=== PATIENT | female | born 1955 | race Caucasian/White ===

== ENCOUNTER → 2018-02-07 | Outpatient (CLI) | payer BC | END | disposition home or self-care (01) | LOC: RAH 13:45 | DX: Z12.31 Encounter for screening mammogram for malignant neoplasm of breast (principal) | CPT/HCPCS: 77067 ==

== ENCOUNTER 2018-03-05 10:06 | Emergency (ER) | payer BC ==
[2018-03-05 11:10] LABS: CREATININE 0.9 mg/dL (0.5-1.5); POTASSIUM 3.4 mmol/L (3.5-5.1)
[2018-03-05 11:16] LABS: BILIRUBIN,URINE Negative (NEGATIVE); COLOR,URINE Yellow (YELLOW); GLUCOSE, URINE (UA) Negative (NEGATIVE); KETONES,URINE Negative (NEGATIVE); LEUKOCYTE ESTERASE ,URINE Negative (NEGATIVE); NITRATE,URINE Negative (NEGATIVE); OCCULT BLOOD,URINE Negative (NEGATIVE); PH,URINE 6.5 (5.0-8.0); PROTEIN,URINE Negative (NEGATIVE); UROBILINOGEN,URINE 0.2 mg/dL (0.2-1.0)
[2018-03-05 11:17] LABS: BASOPHILS % (AUTO) 0.8 % (0.0-5.0); EOSINOPHILS % (AUTO) 1.4 % (0.0-8.0); HEMATOCRIT 37.9 % (36-48); LYMPHOCYTES % (AUTO) 27.4 % (21.0-51.0); MEAN CORPUSCULAR HEMOGLOBIN 31.1 pg (27.0-33.0); MEAN CORPUSCULAR VOLUME 88.8 fL (79-99); MONOCYTES % (AUTO) 7.7 % (3.0-13.0); NEUTROPHILS % (AUTO) 62.7 % (40.0-77.0); NUCLEATED RED BLOOD CELLS 0.1 % (0.0-0.19); PLATELET COUNT (AUTO) 277 K/uL (130-400); RED BLOOD CELL COUNT(AUTO) 4.27 MIL/uL (4.00-5.50); RED CELL DISTRIBUTION WIDTH 12.6 % (11.0-15.5); WHITE BLOOD COUNT (AUTO) 5.9 K/uL (4.8-10.8)
[2018-03-05 11:22] LABS: INR 0.96 (0.85-1.15); PROTHROMBIN TIME 10.1 SEC (9.6-11.6)
[2018-03-05 11:23] LABS: ALBUMIN 3.8 g/dL (3.5-5.0); BILIRUBIN,TOTAL 0.3 mg/dL (0.2-1.0); CREATINE KINASE MB 0.9 ng/mL (0.5-3.6); TOTAL PROTEIN, SERUM 7.3 g/dL (6.0-8.3)
[2018-03-05 11:24] LABS: BACTERIA,URINE Rare /HPF (None Seen); RBC,URINE None Seen /HPF (0-1); SQUAMOUS EPITHELIAL CELL,UR Rare /HPF (0-2); WBC,URINE None Seen /HPF (0-1)
[2018-03-05 11:27] LABS: APPEARANCE,URINE CLEAR (CLEAR)
[2018-03-05] MEDS ORDERED: CYCLOBENZAPRINE HCL 10 MG TABLET ONE (11:29)
[2018-03-05] MEDS ORDERED: TRAMADOL HCL 50 MG TABLET ONE (11:29)
[2018-03-05] MEDS ORDERED: METHYLPREDNISOLONE SOD SUCC 125MG/2ML VIAL ONE (13:08)
== END 2018-03-05 14:12 | disposition home or self-care (01) ==
LOC: EDH 10:06
DX: M54.5 Low back pain (principal); I10 Essential (primary) hypertension; E78.5 Hyperlipidemia, unspecified; R79.1 Abnormal coagulation profile; Z88.2 Allergy status to sulfonamides
CPT/HCPCS: 36415; 72100; 80053; 81001; 82550; 82553; 84484; 85025; 85610; 85730; 93005; 96374; 99285; J2930

== ENCOUNTER → 2018-07-25 | Outpatient (CLI) | payer BC | END | disposition home or self-care (01) | LOC: RAH 13:15 | PROVIDERS: ATTEND Physician Assistant Medical | DX: R92.2 Inconclusive mammogram (principal) | CPT/HCPCS: 76641 ==

== ENCOUNTER → 2019-02-09 | Outpatient (CLI) | payer BC | END | disposition home or self-care (01) | LOC: RAH 09:56 | PROVIDERS: ATTEND Student in an Organized Health Care Education/Training Program | DX: N63.42 Unspecified lump in left breast, subareolar (principal); N64.89 Other specified disorders of breast | CPT/HCPCS: 76641; 77066 ==

== ENCOUNTER → 2019-10-09 | Outpatient (CLI) | payer BC ==
[2019-10-09 17:47] LABS: ALBUMIN 4.1 g/dL (3.5-5.0); BILIRUBIN,TOTAL 0.3 mg/dL (0.2-1.0); CREATININE 0.8 mg/dL (0.5-1.5); POTASSIUM 3.5 mmol/L (3.5-5.1); TOTAL PROTEIN, SERUM 7.4 g/dL (6.0-8.3)
== END | disposition home or self-care (01) ==
LOC: EDH 10-07 15:01 → LAB 17:07
PROVIDERS: ATTEND Family Medicine
DX: R19.4 Change in bowel habit (principal)
CPT/HCPCS: 36415; 80053; 87507

== ENCOUNTER → 2020-02-26 | Outpatient (CLI) | payer BC ==
[2020-02-26 14:08] LABS: CREATININE 0.8 mg/dL (0.5-1.5); POTASSIUM 3.9 mmol/L (3.5-5.1)
== END | disposition home or self-care (01) ==
LOC: LAB 13:09
PROVIDERS: ATTEND Surgery
DX: I10 Essential (primary) hypertension (principal)
CPT/HCPCS: 36415; 80048

== ENCOUNTER → 2020-02-27 | Outpatient (CLI) | payer BC ==
[~2020-02-27] MED LIST: GADODIAMIDE 10 MMOL/20 ML VIAL IV ONE
== END | disposition home or self-care (01) ==
LOC: RAH 11:08
PROVIDERS: ATTEND Surgery
DX: N60.01 Solitary cyst of right breast (principal); D24.2 Benign neoplasm of left breast
CPT/HCPCS: 77049; A9579

== ENCOUNTER 2020-09-28 10:17 | Inpatient (IN) | payer BC, MEDICARE ==
[~2020-09-28] VITALS: Ht 157.5 cm; Wt 63.5 kg
[2020-09-28 10:44] LABS: BASOPHILS % (AUTO) 0.3 % (0.0-5.0); EOSINOPHILS % (AUTO) 0.4 % (0.0-8.0); HEMATOCRIT 39.3 % (36-48); LYMPHOCYTES % (AUTO) 10.1 % (21.0-51.0); MEAN CORPUSCULAR HEMOGLOBIN 30.5 pg (27.0-33.0); MEAN CORPUSCULAR HGB CONC 34.1 g/dL (32.0-36.0); MEAN CORPUSCULAR VOLUME 89.5 fL (79-99); NEUTROPHILS % (AUTO) 79.9 % (40.0-77.0); PLATELET COUNT (AUTO) 263 K/uL (130-400); RED BLOOD CELL COUNT(AUTO) 4.39 MIL/uL (4.00-5.50); RED CELL DISTRIBUTION WIDTH 12.2 % (11.0-15.5); WHITE BLOOD COUNT (AUTO) 12.6 K/uL (4.8-10.8)
[2020-09-28 10:45] LABS: APPEARANCE,URINE Clear (CLEAR); BILIRUBIN,URINE Negative (NEGATIVE); COLOR,URINE Yellow (YELLOW); GLUCOSE, URINE (UA) Negative (NEGATIVE); KETONES,URINE Negative (NEGATIVE); LEUKOCYTE ESTERASE ,URINE Small (NEGATIVE); NITRATE,URINE Negative (NEGATIVE); OCCULT BLOOD,URINE Small (NEGATIVE); PH,URINE 6.5 (5.0-8.0); PROTEIN,URINE Negative (NEGATIVE); UROBILINOGEN,URINE 0.2 mg/dL (0.2-1.0)
[2020-09-28 10:59] LABS: POTASSIUM 3.5 mmol/L (3.5-5.1)
[2020-09-28 11:03] LABS: BILIRUBIN,TOTAL 0.3 mg/dL (0.2-1.0); TOTAL PROTEIN, SERUM 7.7 g/dL (6.0-8.3)
[2020-09-28] MEDS ORDERED: MORPHINE 4 MG SYG ONE (11:25)
[2020-09-28] MEDS ORDERED: ONDANSETRON 4MG INJ ONE (11:25)
[2020-09-28] MEDS ORDERED: 0.9%NACL 1000ML 1,000 ML IV ONE (11:26)
[2020-09-28 11:32] LABS: BACTERIA,URINE None Seen /HPF (None Seen)
[2020-09-28] MEDS ORDERED: IOHEXOL-350 75 ML VIAL IV ONE (11:55)
[2020-09-28] MEDS ORDERED: MORPHINE 2 MG SYG IM PRN (17:00)
[2020-09-28] MEDS ORDERED: KETOROLAC 15MG/ML VIAL (15MG/ML) IV PRN (17:00)
[2020-09-28] MEDS: LACTATED RINGERS 1000ML 1,000 ML IV SCH (17:00)
[2020-09-28] MEDS ORDERED: ZOSYN 3.375GM+NS 50ML 50 ML IV ONE (17:05)
[2020-09-28] MEDS ORDERED: ACETAMINOPHEN 325 MG TAB ONE (17:12)
[2020-09-28] MEDS ORDERED: POTASSIUM CHLORIDE 20MEQ/100ML 100 ML IV PRN ×2 (20:45)
[2020-09-28] MEDS ORDERED: FAMOTIDINE 20MG TAB ONE (20:45)
[2020-09-28] MEDS ORDERED: AMLODIPINE 5 MG TAB ONE (20:46)
[2020-09-28] MEDS: AMLODIPINE 5 MG TAB PO SCH (21:00)
[2020-09-28] MEDS: FAMOTIDINE 20MG TAB PO SCH (21:00)
[2020-09-29] MEDS: LACTATED RINGERS 1000ML 1,000 ML IV SCH ×2 (06:20→15:11)
[2020-09-29 07:20] LABS: BASOPHILS % (AUTO) 0.3 % (0.0-5.0); EOSINOPHILS % (AUTO) 0.7 % (0.0-8.0); HEMATOCRIT 37.5 % (36-48); LYMPHOCYTES % (AUTO) 15.1 % (21.0-51.0); MEAN CORPUSCULAR HEMOGLOBIN 30.6 pg (27.0-33.0); MEAN CORPUSCULAR HGB CONC 33.6 g/dL (32.0-36.0); NEUTROPHILS % (AUTO) 75.7 % (40.0-77.0); PLATELET COUNT (AUTO) 239 K/uL (130-400); RED BLOOD CELL COUNT(AUTO) 4.12 MIL/uL (4.00-5.50); RED CELL DISTRIBUTION WIDTH 12.5 % (11.0-15.5); WHITE BLOOD COUNT (AUTO) 9.4 K/uL (4.8-10.8)
[2020-09-29 07:37] LABS: ALBUMIN 3.3 g/dL (3.5-5.0); BILIRUBIN,TOTAL 0.3 mg/dL (0.2-1.0); CREATININE 0.8 mg/dL (0.5-1.5); POTASSIUM 3.9 mmol/L (3.5-5.1); TOTAL PROTEIN, SERUM 6.9 g/dL (6.0-8.3)
[2020-09-29] MEDS ORDERED: FAMOTIDINE 20MG TAB ONE (08:08)
[2020-09-29] MEDS ORDERED: ZOSYN 3.375GM+NS 50ML 50 ML IV ONE (08:09)
[2020-09-29] MEDS ORDERED: APIXABAN 2.5 MG TABLET PO ONE (08:09)
[2020-09-29] MEDS ORDERED: METOPROLOL SUCCINATE 50 MG TAB.SR.24H PO ONE (08:09)
[2020-09-29] MEDS: ZOSYN 3.375GM+NS 50ML 50 ML IV SCH ×2 (09:00→17:44)
[2020-09-29] MEDS: METOPROLOL SUCCINATE 50 MG TAB.SR.24H PO SCH (09:00)
[2020-09-29] MEDS: APIXABAN 5 MG TABLET PO SCH (09:00)
[2020-09-29] MEDS: EZETIMIBE 10 MG TAB PO SCH (09:00)
[2020-09-29] MEDS: FAMOTIDINE 20MG TAB PO SCH ×2 (09:00→20:35)
[2020-09-29] MEDS ORDERED: KETOROLAC 15MG/ML VIAL (15MG/ML) ONE (13:43)
[2020-09-29 16:00] VITALS: BP 133/63
[2020-09-29 19:54] VITALS: BP 121/60
[2020-09-29] MEDS: AMLODIPINE 5 MG TAB PO SCH (20:35)
[2020-09-29 23:27] VITALS: BP 147/69
[2020-09-30] MEDS: ZOSYN 3.375GM+NS 50ML 50 ML IV SCH ×2 (01:00→09:48)
[2020-09-30 03:28] VITALS: BP 134/67
[2020-09-30 05:33] LABS: BASOPHILS % (AUTO) 0.5 % (0.0-5.0); EOSINOPHILS % (AUTO) 2.6 % (0.0-8.0); HEMATOCRIT 36.1 % (36-48); LYMPHOCYTES % (AUTO) 36.5 % (21.0-51.0); MEAN CORPUSCULAR HEMOGLOBIN 29.7 pg (27.0-33.0); MEAN CORPUSCULAR HGB CONC 33.2 g/dL (32.0-36.0); MEAN CORPUSCULAR VOLUME 89.4 fL (79-99); MONOCYTES % (AUTO) 9.4 % (3.0-13.0); NEUTROPHILS % (AUTO) 50.8 % (40.0-77.0); PLATELET COUNT (AUTO) 250 K/uL (130-400); RED BLOOD CELL COUNT(AUTO) 4.04 MIL/uL (4.00-5.50); RED CELL DISTRIBUTION WIDTH 12.3 % (11.0-15.5); WHITE BLOOD COUNT (AUTO) 5.7 K/uL (4.8-10.8)
[2020-09-30 06:15] LABS: ALBUMIN 3.3 g/dL (3.5-5.0); BILIRUBIN,TOTAL 0.4 mg/dL (0.2-1.0); TOTAL PROTEIN, SERUM 6.8 g/dL (6.0-8.3)
[2020-09-30 06:24] LABS: POTASSIUM 2.9 mmol/L (3.5-5.1)
[2020-09-30] MEDS: LACTATED RINGERS 1000ML 1,000 ML IV SCH (07:57)
[2020-09-30 08:01] VITALS: BP 143/74
[2020-09-30] MEDS: EZETIMIBE 10 MG TAB PO SCH (09:48)
[2020-09-30] MEDS: METOPROLOL SUCCINATE 50 MG TAB.SR.24H PO SCH (09:49)
[2020-09-30] MEDS: APIXABAN 5 MG TABLET PO SCH (09:49)
[2020-09-30] MEDS: FAMOTIDINE 20MG TAB PO SCH (09:49)
[2020-09-30] MEDS ORDERED: POTASSIUM CHLORIDE 10% ELIXIR 20 MEQ/15 ML UDCUP PO PRN (10:45)
[2020-09-30] MEDS ORDERED: LIDOCAINE HCL-MPF 1% 2ML VIAL IV PRN (10:45)
[2020-09-30] MEDS ORDERED: POTASSIUM CHLORIDE 20MEQ/100ML 100 ML IV PRN (10:45)
[2020-09-30] MEDS: KCL 20 MEQ ERTAB PO PRN ×3 (11:17→15:46)
[2020-09-30] MEDS ORDERED: CIPR500S5 PO (11:59)
[2020-09-30] MEDS ORDERED: METR-172 PO (11:59)
[2020-09-30 12:11] VITALS: BP 145/74
[2020-09-30 16:45] VITALS: BP 131/65
== END 2020-09-30 17:00 | disposition home or self-care (01) | DRG 392 ==
LOC: EDH 10:17 → OBSVTOIN 16:59 → EDHIP 16:59 → 3AH 09-29 15:04
PROVIDERS: ADMIT Internal Medicine; ATTEND Internal Medicine
DX: K57.32 Diverticulitis of large intestine without perforation or abscess without bleeding (principal); I48.20 Chronic atrial fibrillation, unspecified; N63.10 Unspecified lump in the right breast, unspecified quadrant; I10 Essential (primary) hypertension; Z20.822 Contact with and (suspected) exposure to COVID-19; D72.829 Elevated white blood cell count, unspecified; Z88.5 Allergy status to narcotic agent; Z88.2 Allergy status to sulfonamides; E78.5 Hyperlipidemia, unspecified; Z79.01 Long term (current) use of anticoagulants
CPT/HCPCS: 36415; 74177; 80053; 81001; 84132; 85025; 87426; G0378; J1885; J2270; J2405; J2543; J3480; J3490; J7030; J7120; Q9967; U0003

== ENCOUNTER → 2020-12-26 | Outpatient (CLI) | payer BC, MEDICARE ==
[~2020-12-26] MED LIST changes: +CIPR500S5 PO; -GADODIAMIDE 10 MMOL/20 ML VIAL IV ONE; +METR-172 PO
== END | disposition home or self-care (01) ==
LOC: RAH 07:56
PROVIDERS: ATTEND Student in an Organized Health Care Education/Training Program
DX: N60.01 Solitary cyst of right breast (principal); N63.42 Unspecified lump in left breast, subareolar
CPT/HCPCS: 77066

== ENCOUNTER → 2021-02-26 | Outpatient (CLI) | payer BC, MEDICARE ==
[2021-02-26 11:31] LABS: INR 0.97 (0.85-1.15); PROTHROMBIN TIME 10.6 SEC (9.6-11.6)
[2021-02-26 14:24] LABS: PARTIAL THROMBOPLASTIN TIME 25.9 SEC (26.3-35.5)
== END | disposition home or self-care (01) ==
LOC: RAH 10:01
PROVIDERS: ATTEND Student in an Organized Health Care Education/Training Program
DX: D24.1 Benign neoplasm of right breast (principal); N60.01 Solitary cyst of right breast; Z79.01 Long term (current) use of anticoagulants
CPT/HCPCS: 10005; 19000; 19083; 36415; 76942; 85610; 85730

== ENCOUNTER → 2021-09-08 | Outpatient (CLI) | payer BC, MEDICARE | END | disposition home or self-care (01) | LOC: RAH 14:58 | PROVIDERS: ATTEND Student in an Organized Health Care Education/Training Program | DX: N60.01 Solitary cyst of right breast (principal); N60.02 Solitary cyst of left breast ==

== ENCOUNTER 2022-02-13 20:23 | Emergency (ER) | payer BC, MEDICARE ==
[~2022-02-13] VITALS: Ht 157.5 cm; Wt 63.5 kg
[2022-02-13 20:45] VITALS: BP 163/88
[2022-02-13] MEDS ORDERED: TRAM-355 PO (21:11)
[2022-02-13] MEDS ORDERED: TRAMADOL HCL 50 MG TABLET ONE (21:23)
[2022-02-13] MEDS ORDERED: TRAMADOL HCL 50 MG TABLET PO ONE (21:30)
== END 2022-02-13 21:33 | disposition home or self-care (01) ==
LOC: EDH 20:23
DX: M54.50 Low back pain, unspecified (principal); E78.00 Pure hypercholesterolemia, unspecified; I10 Essential (primary) hypertension; I48.91 Unspecified atrial fibrillation; Z88.2 Allergy status to sulfonamides; Z88.5 Allergy status to narcotic agent

== ENCOUNTER → 2022-03-16 | Outpatient (CLI) | payer BC, MEDICARE ==
[~2022-03-16] MED LIST changes: +TRAM-355 PO
== END | disposition home or self-care (01) ==
LOC: RAH 08:44
PROVIDERS: ATTEND Student in an Organized Health Care Education/Training Program
DX: R92.8 Other abnormal and inconclusive findings on diagnostic imaging of breast (principal); D24.2 Benign neoplasm of left breast; D24.1 Benign neoplasm of right breast
CPT/HCPCS: 77066

== ENCOUNTER → 2023-03-19 | Outpatient (CLI) | payer MEDICARE | END | disposition home or self-care (01) | LOC: RAH 08:37 | PROVIDERS: ATTEND Student in an Organized Health Care Education/Training Program | DX: Z12.31 Encounter for screening mammogram for malignant neoplasm of breast (principal) | CPT/HCPCS: 77067 ==

== ENCOUNTER → 2025-04-20 | Emergency (ER) | payer MEDICARE ==
[~2025-04-20] VITALS: Ht 157.5 cm; Wt 65.8 kg
[~2025-04-20] MED LIST changes: -TRAM-355 PO; +TRAM-543 PO
[2025-04-20 10:42] VITALS: TEMP 98.2
--- NOTE | 2025-04-20 10:51 | ERN ---
ED Note History of Present Illness Stated Complaint: ANKLE PAIN Chief Complaint: Ankle Problem Time Seen by MD: 10:40 Dictation: PATIENT IS A 69-YEAR-OLD FEMALE HERE WITH A KNOWN LEFT LATERAL MALLEOLAR FRACTURE SUSTAINED ON WEDNESDAY STATUS POST A SAME LEVEL FALL. SHE HAS A CD AND THE READINGS FROM THE X-RAY FROM HER DOCTOR, HOWEVER THERE HAS BEEN NO FOLLOW UP AFTER THE X-RAYS WERE DONE. SHE HAS BEEN MANAGING HER PAIN WITH [id number] TYLENOL SINCE SHE HAS ALLERGIES TO CODEINE AND CAN NOT TAKE NSAIDS. DISTAL NEUROVASCULAR CMS INTACT SHE DOES HAVE A SANKET WRAP IN PLACE TO THE LEFT ANKLE. Allergies: Coded Allergies: Codeine (Unverified Allergy, Severe, NAUSEA/VOMITING, 04/11/13) Sulfa(Sulfonamide Antibiotics) (Unverified Allergy, Severe, RASH, 04/11/13) Home Meds Active Scripts Tramadol HCl/Acetaminophen (Tramadol-Acetaminophn 37.5-325) 1 Each Tablet, 1 EACH PO QID for 5 Days, #20 TAB Prov:RODOLFO VERNON MD 02/13/22 Metronidazole (Metronidazole) 500 Mg Tablet, 500 MG PO Q8H for 10 Days, #30 TAB Prov:GABY TAN I DRAWING IN MACHINE TENDER 09/30/20 Ciprofloxacin (Ciprofloxacin) 500 Mg/5 Ml Nell.mc.rec, 500 MG PO BID for 10 Days, #20 TAB 0 Refills Prov:GABY TAN I DRAWING IN MACHINE TENDER 09/30/20 Past Medical History Past Medical History: A-Fib, High Cholesterol, Hypertension Surgical History: Tonsillectomy Surgical History Other: SHOULDER SURGERY BILATERAL Social History: Negative, Lives with family History: Not Applicable RN Note Reviewed/Agreed w/PFSH: Yes Review of System Dictation CONSTITUTIONAL: NEGATIVE EXCEPT FOR HPI HEAD/FACE: NEGATIVE EXCEPT FOR HPI EENT: NEGATIVE EXCEPT FOR HPI RESPIRATORY: NEGATIVE EXCEPT FOR HPI GASTROINTESTINAL/ABDOMINAL: NEGATIVE EXCEPT FOR HPI GENITOURINARY: NEGATIVE EXCEPT FOR HPI MUSCULOSKELETAL: NEGATIVE EXCEPT FOR HPI LEFT LATERAL MALLEOLAR FRACTURE INTEGUMENTARY: NEGATIVE EXCEPT FOR HPI NEUROLOGICAL/PSYCH: NEGATIVE EXCEPT FOR HPI HEMATOLOGIC/LYMPHATIC: NEGATIVE EXCEPT FOR HPI ALL SYSTEMS NEGATIVE, EXCEPT NOTED ABOVE. 13 POINT REVIEW OF SYSTEMS ASSESSED AND ALL NEGATIVE EXCEPT FOR ABOVE. Physical Exam Dictation VITAL SIGNS REVIEWED GENERAL APPEARANCE: ALERT, ORIENTED X 3, MILD ACUTE DISTRESS, WELL DEVELOPED, NOURISHED. HEAD AND FACE: NON-TRAUMATIC. EYES: PERRL, PINK CONJUNCTIVAS, EYELID NO TRAUMA, ANTERIOR CHAMBER WITH ARCUS SENILIS. EARS: PINNAS INTACT AND NO SIGNS OF TRAUMA OR ERYTHEMA EAR CANALS CLEAR AND NO DISCHARGE TM NO ERYTHEMA NOSE: NO DISCHARGE, NO BLEEDING. OROPHARYNX: MOUTH NORMAL, TONGUE PINK, PHARYNX CLEAR,NO ERYTHEMA, TONSILS NO EXUDATES, NO ABSCESSES NOTED, MUCOUS MEMBRANE MOIST NECK: SUPPLE, NON-TENDER, NO THYROMEGALY, NO MASSES, NO JVD, NO BRUITS BREAST:DEFERRED CHEST:NO TENDERNESS, NO CREPITUS, NO PARADOXICAL MOVEMENT, NO RETRACTIONS LUNGS:CLEAR, WELL-VENTILATED, SYMMETRIC, NO RALES, NO WHEEZING, NO RHONCHI, NO STRIDOR, GOOD BREATH SOUNDS BILATERALLY HEART: REGULAR RATE, REGULAR RHYTHM, NO MURMUR, NO GALLOPS VASCULAR: NO PERIPHERAL EDEMA, ABDOMEN: SOFT, POSITIVE BOWEL SOUNDS, NONDISTENDED, NO GUARDING, NONTENDER, NO REBOUND, NO MASSES NO HEPATOMEGALY, NO SPLENOMEGALY, NO JAFFE'S SIGN, NO HERNIAS. RECTAL: DEFERRED GENITAL: DEFERRED NEUROLOGICAL: NORMAL SPEECH, MOTOR FUNCTION INTACT, SENSORY FUNCTION INTACT MUSCULOSKELETAL: NECK NONTENDER, FULL RANGE OF MOTION, BACK NONTENDER, FULL RANGE OF MOTION, EXTREMITIES: DECREASED RANGE OF MOTION TO LEFT ANKLE WITH LATERAL MALLEOLAR TENDERNESS. DISTAL NEUROVASCULAR CMS INTACT SKIN: COLOR PINK, DRY, NO TURGOR, NO RASH, NO LACERATIONS, NO ABRASIONS, NO CONTUSIONS. MULTIPLE ABRASIONS NOTED FROM FALL ON WEDNESDAY. LYMPHATIC: DEFERRED Results (Laboratory/Radiology) Laboratory/Radiology PATIENT HAD CD DISC AND X-RAY REPORT FROM HER OUTPATIENT RADIOLOGY DEMONSTRATES NONDISPLACED LEFT LATERAL MALLEOLAR FRACTURE. Labs Reviewed?: Yes ED Course ED Course Orders Procedure Category Date Status Time Posterior Ankle Splint ANIL.ER 04/20/25 Verified 10:44 Crutches W/Training CPOE 04/20/25 Transmitted (Er) 10:44 Acetaminophen 500mg PHA 04/20/25 Verified Tab (Tylenol 500mg T 11:00 1050/NEUROVASCULAR CMS INTACT POST PLACEMENT OF SPLINT TO LEFT ANKLE. CRUTCHES PROVIDED PATIENT REFERRED TO ORTHOPEDIC SURGERY. Medical Decision Making MDM MEDICAL DECISION-MAKING BASED ON CD AND X-RAY REPORT FROM OUTPATIENT RADIOLOGY. PATIENT HAS NONDISPLACED LEFT LATERAL MALLEOLAR FRACTURE POSTERIOR SHORT-LEG SPLINT APPLIED BY TECH TO LEG WITH NEUROVASCULAR CMS INTACT POST PLACEMENT CRUTCHES WERE PROVIDED PATIENT WILL BE REFERRED TO , ORTHOPEDICS FOR FOLLOW UP. DX & DISP Disposition: Discharge Departure Impression: Primary Impression: Closed left ankle fracture Additional Impression: Multiple abrasions Condition: Stable Additional Instructions: Follow-up with primary care provider in 1 to 2 days. Take medications as directed here in the emergency room. Okay to continue home medications unless otherwise discussed during your visit in the emergency room today. Return to your nearest emergency room if symptoms worsen or if there is no improvement. Call 911 if you need immediate assistance. Take Tylenol or Motrin [id number] as needed and if no contraindications are present. Increase oral hydration. A wound culture or urine culture was ordered here in the emergency room department please follow-up with primary care provider and advise them to get repeat ports from our facility. If you had any Sanket wrap/splints that were applied here, please do not remove them until you see your primary care or specialty. Splint/crutches/no weight-bearing until cleared by Orthopedic surgery, call for an appointment today. Warm compresses to left ankle three to 4 times a day. Referrals: MARYANA ASHBY MD (PCP) DILCIA TINEO MD Time of Disposition: 10:51 I have reviewed the case, and I agree with, Diagnosis and Plan CIARA THORPE NP Apr 20, 2025 10:51
[2025-04-20 11:06] VITALS: BP 135/76; PULSE 79; RESP 20; O2SAT 97
--- NOTE | 2025-04-20 11:23 | NUR ---
POSTERIOR ANKLE SPLINT APPLIED TO LEFT ANKLE. PT TOLERATED PROCEDURE WELL. CRUTCH TRAININGS PROVIDED. PT AGREED AND UNDERSTOOD.
== END ==
LOC: EDH 10:37
DX: S82.62XA Displaced fracture of lateral malleolus of left fibula, initial encounter for closed fracture (principal); I48.91 Unspecified atrial fibrillation; E78.00 Pure hypercholesterolemia, unspecified; I10 Essential (primary) hypertension; Z88.2 Allergy status to sulfonamides; Z88.5 Allergy status to narcotic agent; Z90.89 Acquired absence of other organs; W18.39XA Other fall on same level, initial encounter; Y93.89 Activity, other specified; Y92.89 Other specified places as the place of occurrence of the external cause; Y99.8 Other external cause status
CPT/HCPCS: 29515; 99282; 99283